=== PATIENT | female | born 1980 | race Caucasian/White ===

== ENCOUNTER → 2019-07-29 12:15 | Outpatient (BNVA) | payer SELFPAY | PROVIDERS: Visit Provider Nurse Practitioner Family | DX: R50.9 Fever, unspecified (principal); R19.7 Diarrhea, unspecified; F31.9 Bipolar disorder, unspecified | CPT/HCPCS: 87400; 87635 ==

== ENCOUNTER → 2019-10-13 14:09 | Outpatient (BNVA) | payer MEDICAID, SELFPAY | PROVIDERS: Visit Provider Nurse Practitioner Women's Health | DX: Z30.432 Encounter for removal of intrauterine contraceptive device (principal); Z30.9 Encounter for contraceptive management, unspecified; Z30.011 Encounter for initial prescription of contraceptive pills; Z12.4 Encounter for screening for malignant neoplasm of cervix | CPT/HCPCS: 88175 ==

== ENCOUNTER → 2020-03-07 10:45 | Outpatient (BNVA) | payer MEDICAID, SELFPAY | PROVIDERS: Visit Provider Obstetrics & Gynecology | DX: Z32.00 Encounter for pregnancy test, result unknown (principal) | CPT/HCPCS: 81025 ==

== ENCOUNTER → 2020-03-10 10:51 | Outpatient (BNVA) | payer MEDICAID, SELFPAY | PROVIDERS: PCP Nurse Practitioner Family; Visit Provider Nurse Practitioner Women's Health | DX: O99.211 Obesity complicating pregnancy, first trimester (principal); R30.0 Dysuria; F31.9 Bipolar disorder, unspecified; O09.521 Supervision of elderly multigravida, first trimester; O34.219 Maternal care for unspecified type scar from previous cesarean delivery; E03.9 Hypothyroidism, unspecified; O36.80X0 Pregnancy with inconclusive fetal viability, not applicable or unspecified; F34.9 Persistent mood [affective] disorder, unspecified; O09.899 Supervision of other high risk pregnancies, unspecified trimester | CPT/HCPCS: 84315; 87077; 87086; 87184 ==

== ENCOUNTER → 2020-03-22 09:05 | Outpatient (BNVA) | payer MEDICAID, SELFPAY | PROVIDERS: PCP Nurse Practitioner Family; Visit Provider Obstetrics & Gynecology | DX: O09.899 Supervision of other high risk pregnancies, unspecified trimester (principal); O09.521 Supervision of elderly multigravida, first trimester; E03.9 Hypothyroidism, unspecified; O99.211 Obesity complicating pregnancy, first trimester; F34.9 Persistent mood [affective] disorder, unspecified | CPT/HCPCS: 80053; 80307; 82950; 83036; 84315; 84443; 85027; 86592; 86762; 86803; 86850; 86900; 87340; 87806 ==

== ENCOUNTER → 2020-03-30 09:50 | Outpatient (BNVA) | payer MEDICAID, SELFPAY | PROVIDERS: PCP Nurse Practitioner Family; Visit Provider Obstetrics & Gynecology | DX: O09.899 Supervision of other high risk pregnancies, unspecified trimester (principal) | CPT/HCPCS: 82951; 82952 ==

== ENCOUNTER → 2020-04-03 11:07 | Outpatient (BNVA) | payer MEDICAID, SELFPAY | PROVIDERS: PCP Nurse Practitioner Family; Visit Provider Obstetrics & Gynecology | DX: O09.899 Supervision of other high risk pregnancies, unspecified trimester (principal); O23.40 Unspecified infection of urinary tract in pregnancy, unspecified trimester; Z30.2 Encounter for sterilization; Z86.32 Personal history of gestational diabetes; O09.299 Supervision of pregnancy with other poor reproductive or obstetric history, unspecified trimester; O34.219 Maternal care for unspecified type scar from previous cesarean delivery; O09.521 Supervision of elderly multigravida, first trimester; O99.211 Obesity complicating pregnancy, first trimester; E03.9 Hypothyroidism, unspecified; F31.9 Bipolar disorder, unspecified; Z3A.00 Weeks of gestation of pregnancy not specified | CPT/HCPCS: 84315; 87086; 87491; 87591 ==

== ENCOUNTER → 2020-05-03 13:30 | Outpatient (BNVA) | payer MEDICAID, SELFPAY | PROVIDERS: PCP Nurse Practitioner Family; Visit Provider Nurse Practitioner Women's Health | DX: O09.899 Supervision of other high risk pregnancies, unspecified trimester (principal); Z36.9 Encounter for antenatal screening, unspecified; O23.40 Unspecified infection of urinary tract in pregnancy, unspecified trimester; Z30.2 Encounter for sterilization; Z86.32 Personal history of gestational diabetes; O09.299 Supervision of pregnancy with other poor reproductive or obstetric history, unspecified trimester; O34.219 Maternal care for unspecified type scar from previous cesarean delivery; O09.521 Supervision of elderly multigravida, first trimester; O99.211 Obesity complicating pregnancy, first trimester; E03.9 Hypothyroidism, unspecified; F31.9 Bipolar disorder, unspecified | CPT/HCPCS: 82105; 84315 ==

== ENCOUNTER → 2020-06-06 09:52 | Outpatient (BNVA) | payer MEDICAID, SELFPAY | PROVIDERS: PCP Nurse Practitioner Family; Visit Provider Obstetrics & Gynecology | DX: O09.899 Supervision of other high risk pregnancies, unspecified trimester (principal); Z30.2 Encounter for sterilization; O09.299 Supervision of pregnancy with other poor reproductive or obstetric history, unspecified trimester; Z86.32 Personal history of gestational diabetes; O34.219 Maternal care for unspecified type scar from previous cesarean delivery; O09.521 Supervision of elderly multigravida, first trimester; O99.211 Obesity complicating pregnancy, first trimester; E03.9 Hypothyroidism, unspecified; F31.9 Bipolar disorder, unspecified; Z04.89 Encounter for examination and observation for other specified reasons | CPT/HCPCS: 84315; 84443 ==

== ENCOUNTER 2020-06-27 10:11 | Emergency (ER) | payer MEDICAID, SELFPAY ==
[2020-06-27] VITALS (11 sets, daily range): BP systolic 105–141; BP diastolic 69–110; PULSE 82–133; RESP 16–24; TEMP 36.7–36.8; O2SAT 96–100; BMI 43.5
--- NOTE | 2020-06-27 10:49 | ED_ITS ---
Documented by User: ALO Lei 06/27/20 15:17 HPI - URI/Sore Throat General: Chief Complaint: COVID symptoms Stated Complaint: TESTED FOR COVID,SHORTNESS OF BREATH,COVID Time Seen by Provider: 06/27/20 10:15 Source: patient Mode of arrival: ambulatory Limitations: no limitations History of Present Illness: HPI Narrative: Patient is a 40-year-old female at 25 weeks here for complaints of cough, congestion, and shortness of breath. Patient states symptoms of been present over the past 2 weeks. She has been seen twice previously for symptoms and placed on amoxicillin which she finished and then azithromycin (just finished yesterday) , albuterol inhaler, and intranasal steroids. Patient does not feel like she is improving. Patient has routine follow-up with Dr. Gibson regarding the . She has no abdominal pain or cramping. No vaginal bleeding. She has felt normal movement. Patient not been running fevers. No sick contacts. She is having some mild nasal congestion with discharge. Previous smoker but hasn't smoked in almost 20 years. MD elicited complaint: cough, nasal congestion and other (SOB) Onset (ago): week(s) (2 wks) Consistency: constant Severity: moderate Description of mucous: yellow and green Able to tolerate fluids by mouth: Yes Exacerbating factors: speaking Relieving factors: nothing Associated symptoms: Reports chest pain (L posterior; reports previous hx of pleurisy ) and nasal congestion; Deny abdominal pain, chills, diarrhea, ear or mastoid pain, fever(s), headache(s), nausea, sinus pain or vomiting Treatments prior to arrival: antibiotics and other (intranasal steroids, albuterol inhaler ) Review of Systems Const: Denies: fever(s), chills, body aches, fatigue or malaise Eyes: Denies: change in vision, blurry vision, photophobia, floaters or seeing flashes ENMT: Reports: nasal discharge and nasal congestion; Denies: throat pain, odynophagia, hoarseness, ear or mastoid pain, post nasal drip or sinus pain Card: Reports: chest pain (L posterior; reports previous hx of pleurisy ) and swelling of feet/ankles (secondary to ); Denies: palpitations, irregular heart rhythm, edema, lightheadedness, syncope or pre-syncope Resp: Reports: dyspnea, productive cough and chest congestion; Denies: wheezing, stridor or hemoptysis GI: Denies: abdominal pain, nausea, vomiting or diarrhea : Reports: other (currently 25 wks ); Denies: flank pain, dysuria or vaginal bleeding Musc: Denies: neck pain or back pain Skin/Breast: Denies: rash Neuro: Denies: headache(s), numbness in extremities, weakness in extremities or sensory changes PFSH ED PFSH: Medical History (Updated 06/27/20 @ 15:10 by ALO Lei) Bipolar 1 disorder, depressed Diagnosed in 2016 managed by Sandy Duval at [facility]. -Reports having ADHD as a kid and was on Ritalin. Then diagnosed with depression as a teenager and did take some antidepressants until being diagnosed with bipolar disorder in 2016. - Was on Lamictal prior to the however stopped and is currently just on Lexapro. She self discontinued this in the first trimester and does not want medication and was not doing well following up with therapy either Hypothyroid Diagnosed in 2012 and was taking levothyroxine in the past. Has not been on any medication since at least 2018 and has not had her thyroid levels checked. No pertinent past medical history Denies diabetes, asthma, hypertension, seizures, DVT/PE. PMD: Julia Galvez. Surgical History Hx of section X 3 1--2008; CPD in [place] 2--2009; Repeat [place] 3--2012; Repeat [place] Family History Grandfather Diabetes Maternal grandfather Father Hyperlipidemia Hypertension Stroke Heart disease Denies family history of Colon cancer Ovarian cancer Breast cancer Uterine cancer Physical Exam Const: COMMON NORMALS: no acute distress, patient oriented x3, no limitations and alert GENERAL APPEARANCE: cooperative NUTRITIONAL APPEARANCE: obese and other ( ) ORIENTATION/CONSCIOUSNESS: Yes awake, Yes oriented to person, Yes oriented to place and Yes oriented to time HENMT: COMMON NORMALS: normocephalic, atraumatic, hearing grossly normal bilaterally, external ears normal, EAC's normal, TM's normal bilaterally, Normal external nose present, Normal nasal mucous membranes and turbinates present, moist oral mucous membranes and oropharynx normal HEAD & SCALP: normal to inspection, normocephalic and atraumatic FACE & SINUS: normal facial exam NOSE: Normal external nose present and Normal nasal mucous membranes and turbinates present EXTERNAL EAR: Yes external ears normal EXTERNAL AUDITORY CANAL: EAC's normal TYMPANIC MEMBRANE: TM's normal bilaterally MOUTH: Normal oral and palatal mucosa present, lip normal and tongue normal T HROAT: posterior oropharynx normal, tonsils normal and uvula midline OTHER: whispers when she speaks-states she is not hoarse but when she talks it triggers her to cough Eye: GENERAL EYE: appearance normal, both eyes and all related structures Neck/C-Spine: COMMON NORMALS: no lymphadenopathy Chest: COMMONS NORMALS: normal inspection of the chest and normal palpation of entire chest wall Resp: COMMON NORMALS: normal respiratory effort and clear to auscultation bilaterally AUSCULTATION: clear to auscultation bilaterally Cardio: COMMON NORMALS: regular rhythm RATE: tachycardic (mild) RHYTHM: regular rhythm GI: COMMON NORMALS: Soft to palpation INSPECTION: Yes gravid abdomen AUSCULTATION: Yes normoactive bowel sounds PALPATION: Yes Soft to palpation : COMMON NORMALS: Yes no CVA tenderness BLADDER/KIDNEY EXAM: Yes no CVA tenderness Back/Pelvis: COMMON NORMALS: no CVA tenderness Neuro: COMMON NORMALS: patient oriented x3 SENSORIUM/ORIENTATION: Yes alert, Yes oriented to person, Yes oriented to place and Yes oriented to time Skin: COMMON NORMALS: no rashes or lesions noted GENERAL SKIN EXAM: no rashes or lesions noted Course Vital Signs: Vital signs: Vital Signs Temperature 98.2 F 06/27/20 15:41 Pulse Rate 82 06/27/20 15:41 Respiratory Rate 16 06/27/20 15:41 Blood Pressure 125/82 06/27/20 15:41 Pulse Oximetry 98 06/27/20 15:41 MDM - URI/Sore Throat MDM Narrative: Medical decision making narrative: Patient clinically appears well. She was initially very mildly tachycardic upon arrival however this quickly resolved. She is satting at 98-100% on room air. Patient was ambulated around the ED and sats stayed at 98%. She did become tachycardic however. She has no white count. Her rapid COVID is negative. Remainder of her chemistry panel is normal. Very mild elevation to her CRP at 11.1. UA looks non- concerning. Spoke to Dr. Moses and decision was made to add BNP and D-dimer. BNP is normal. D-dimer very mildly elevated most likely secondary to her status. CXR showing possible chronic vs early pneumonia bibasilar infiltrates. Discussed with Dr. Moses and we feel patient is stable for DC. I don't see any indication or qualifications for an admit at this time. He recommends placing her on Augmentin. Recommend follow up with PCP and Dr. Gibson as scheduled/needed. Strict return to ED precautions given. Lab Data: Attestation: I reviewed the patient's lab results. Labs: Lab Results 06/27/20 06/27/20 06/27/20 Range/Units 11:35 11:39 11:39 WBC 9.0 (4.0-10.0) 10^3/ uL RBC 4.36 (4.1-5.3) 10^6/u L Hgb 12.1 (11.5-15.3) g/dL Hct 37.6 (37.0-47.0) % MCV 86.2 (81-99) fL MCH 27.8 L (28.0-34.0) pg MCHC 32.2 (30.0-36.0) g/dL RDW 13.9 (12.1-15.1) % Plt Count 218 (130-400) 10^3/c mm MPV 11.3 H (7.4-10.4) fL Neut % (Auto) 73.0 % Lymph % (Auto) 16.2 % [place] % (Auto) 7.6 % Eos % (Auto) 2.2 % Baso % (Auto) 0.3 % Neut # (Auto) 6.57 (1.8-7.7) 10^3/u L Lymph # (Auto) 1.5 (0.8-4.8) 10^3/u L [place] # (Auto) 0.7 (0.2-0.9) 10^3/u L Eos # (Auto) 0.2 (0.0-0.8) 10^3/u L Baso # (Auto) 0.0 (0.0-0.1) 10^3/u L Nucleated RBC % (a uto) 0 % Nucleated RBCs # 0.0 /100WBC D-Dimer (0-0.59) ug/mIFE U Sodium 138 (136-145) mmol/L Potassium 4.1 (3.5-5.1) mmol/L Chloride 104 (98-107) mmol/L Carbon Dioxide 23 (22-29) mmol/L Anion Gap 15.1 (5-19) BUN 5 L (6-20) mg/dL Creatinine 0.4 L (0.5-0.9) mg/dL GFR Calculation 178.6 H (90-130) mL/min Glucose 77 (65-115) mg/dL Calculated Osmolal ity 282 L (285-295) mOsm/k g Lactic Acid (0.5-2.2) mmol/L Calcium 8.7 (8.5-10.5) mg/dL Total Bilirubin 0.3 (0.15-1.2) mg/dL AST 9 (0-32) U/L ALT 7 (0-33) U/L Alkaline Phosphata se 59 (35-105) IU/L C-Reactive Protein 11.1 H (0.0-4.9) mg/L NT-Pro-B Natriuret Pep 88 (0-125) pg/mL Total Protein 6.2 L (6.6-8.7) g/dL Albumin 3.7 (3.5-5.2) g/dL Globulin 2.5 (1.3-4.6) g/dL Procalcitonin 0.05 (0-0.5) ng/mL Urine Color (Yellow) Urine Appearance (CLEAR) Urine pH (5-7) Ur Specific Gravit y (1.005-1.030) Urine Protein (Negative) Urine Glucose (UA) (Normal) Urine Ketones (Negative) Urine Blood (Negative) Urine Nitrate (Negative) Urine Bilirubin (Negative) Prot Sulfosalicyli c Acd (Negative) Urine Urobilinogen (Negative) mg/dL Ur Leukocyte Valorie ase (Negative) Urine RBC (0-2) /hpf Urine WBC (0-5) /hpf Ur Squamous Epith Cells (0-5) /hpf Amorphous Sediment Urine Bacteria (NONE) /hpf SARS-CoV-2 Ag (Rap id) (Negative) 06/27/20 06/27/20 06/27/20 Range/Units 11:39 11:45 11:54 WBC (4.0-10.0) 10^3/ uL RBC (4.1-5.3) 10^6/u L Hgb (11.5-15.3) g/dL Hct (37.0-47.0) % MCV (81-99) fL MCH (28.0-34.0) pg MCHC (30.0-36.0) g/dL RDW (12.1-15.1) % Plt Count (130-400) 10^3/c mm MPV (7.4-10.4) fL Neut % (Auto) % Lymph % (Auto) % [place] % (Auto) % Eos % (Auto) % Baso % (Auto) % Neut # (Auto) (1.8-7.7) 10^3/u L Lymph # (Auto) (0.8-4.8) 10^3/u L [place] # (Auto) (0.2-0.9) 10^3/u L Eos # (Auto) (0.0-0.8) 10^3/u L Baso # (Auto) (0.0-0.1) 10^3/u L Nucleated RBC % (a uto) % Nucleated RBCs # /100WBC D-Dimer (0-0.59) ug/mIFE U Sodium (136-145) mmol/L Potassium (3.5-5.1) mmol/L Chloride (98-107) mmol/L Carbon Dioxide (22-29) mmol/L Anion Gap (5-19) BUN (6-20) mg/dL Creatinine (0.5-0.9) mg/dL GFR Calculation (90-130) mL/min Glucose (65-115) mg/dL Calculated Osmolal ity (285-295) mOsm/k g Lactic Acid 0.8 (0.5-2.2) mmol/L Calcium (8.5-10.5) mg/dL Total Bilirubin (0.15-1.2) mg/dL AST (0-32) U/L ALT (0-33) U/L Alkaline Phosphata se (35-105) IU/L C-Reactive Protein (0.0-4.9) mg/L NT-Pro-B Natriuret Pep (0-125) pg/mL Total Protein (6.6-8.7) g/dL Albumin (3.5-5.2) g/dL Globulin (1.3-4.6) g/dL Procalcitonin (0-0.5) ng/mL Urine Color Yellow (Yellow) Urine Appearance Hazy A (CLEAR) Urine pH 8 H (5-7) Ur Specific Gravit y 1.010 (1.005-1.030) Urine Protein Neg (Negative) Urine Glucose (UA) Norm (Normal) Urine Ketones 1+ H (Negative) Urine Blood Neg (Negative) Urine Nitrate Negative (Negative) Urine Bilirubin Neg (Negative) Prot Sulfosalicyli c Acd Negative (Negative) Urine Urobilinogen Norm (Negative) mg/dL Ur Leukocyte Valorie ase Negative (Negative) Urine RBC 0-4 H (0-2) /hpf Urine WBC None (0-5) /hpf Ur Squamous Epith Cells 0-4 H (0-5) /hpf Amorphous Sediment Not Reportable Urine Bacteria Trace (NONE) /hpf SARS-CoV-2 Ag (Rap id) Negative (Negative) 06/27/20 Range/Units 13:30 WBC (4.0-10.0) 10^3/ uL RBC (4.1-5.3) 10^6/u L Hgb (11.5-15.3) g/dL Hct (37.0-47.0) % MCV (81-99) fL MCH (28.0-34.0) pg MCHC (30.0-36.0) g/dL RDW (12.1-15.1) % Plt Count (130-400) 10^3/c mm MPV (7.4-10.4) fL Neut % (Auto) % Lymph % (Auto) % [place] % (Auto) % Eos % (Auto) % Baso % (Auto) % Neut # (Auto) (1.8-7.7) 10^3/u L Lymph # (Auto) (0.8-4.8) 10^3/u L [place] # (Auto) (0.2-0.9) 10^3/u L Eos # (Auto) (0.0-0.8) 10^3/u L Baso # (Auto) (0.0-0.1) 10^3/u L Nucleated RBC % (a uto) % Nucleated RBCs # /100WBC D-Dimer 0.78 H (0-0.59) ug/mIFE U Sodium (136-145) mmol/L Potassium (3.5-5.1) mmol/L Chloride (98-107) mmol/L Carbon Dioxide (22-29) mmol/L Anion Gap (5-19) BUN (6-20) mg/dL Creatinine (0.5-0.9) mg/dL GFR Calculation (90-130) mL/min Glucose (65-115) mg/dL Calculated Osmolal ity (285-295) mOsm/k g Lactic Acid (0.5-2.2) mmol/L Calcium (8.5-10.5) mg/dL Total Bilirubin (0.15-1.2) mg/dL AST (0-32) U/L ALT (0-33) U/L Alkaline Phosphata se (35-105) IU/L C-Reactive Protein (0.0-4.9) mg/L NT-Pro-B Natriuret Pep (0-125) pg/mL Total Protein (6.6-8.7) g/dL Albumin (3.5-5.2) g/dL Globulin (1.3-4.6) g/dL Procalcitonin (0-0.5) ng/mL Urine Color (Yellow) Urine Appearance (CLEAR) Urine pH (5-7) Ur Specific Gravit y (1.005-1.030) Urine Protein (Negative) Urine Glucose (UA) (Normal) Urine Ketones (Negative) Urine Blood (Negative) Urine Nitrate (Negative) Urine Bilirubin (Negative) Prot Sulfosalicyli c Acd (Negative) Urine Urobilinogen (Negative) mg/dL Ur Leukocyte Valorie ase (Negative) Urine RBC (0-2) /hpf Urine WBC (0-5) /hpf Ur Squamous Epith Cells (0-5) /hpf Amorphous Sediment Urine Bacteria (NONE) /hpf SARS-CoV-2 Ag (Rap id) (Negative) Imaging Data^: CXR: Radiologist's impression: [address] [address] XRay Report Signed Patient: Vamsi,Betty C Unit #: [id number] : 1980 Age/Sex: 40 / F ADM Date: 06/27/20 Loc: ER Room/Bed: Attending Dr: Ordering Provider/Ordering MD: Ema Suarez Date of Service: 06/27/20 Procedure(s): XR chest 1V portable [id number] Accession Number(s): [id number] Report Number: [id number] WS: [id number] Exam: XR chest 1V portable [id number] Date/Time of Exam: 06/27/2020 10:56 AM Reason For Exam: SOB/cough/SHIELD-PT IS No priors. Mild infiltrates are noted in the bilateral basal areas. Normal cardiome diastinal structures and regional bony elements. The lungs are fully inflated. No pleural effusions. XR/XR chest 1V portable [id number] IMPRESSION: 1. Mild bibasal infiltrates. These changes may be chronic or could represent developing pneumonia. Dictated By: Hernandez Persaud DO Signed By: Hernandez Persaud DO Signed Date/Time: 06/27/20 1200 DD/ 1159 Discharge Plan Discharge Patient Disposition: Home Clinical Impression: Bronchitis Condition: Stable Prescriptions: New Augmentin 875-125 mg tablet 1 tab PO Q12H 7 Days Qty: 14 RF: 0 No Action prenat.vits,meliza,[id number] Tablet 1 tab PO DAILY RF: 0 azithromycin 250 mg tablet See Rx Instructions .ROUTE .COMPLEX RF: 0 hydrocodone-acetaminophen 5-325 mg tablet 1 tab PO QID PRN (Reason: Pain) RF: 0 Tylenol Extra Strength 500 mg Tablet 500 mg PO PRN RF: 0 ProAir HFA 90 mcg/actuation HFA aerosol inhaler 2 puff INHALATION QID PRN (Reason: Shortness Of Breath) RF: 0 fluticasone propionate 50 mcg/actuation spray,suspension 1 spray INTRANASAL DAILY RF: 0 Discharge Orders: Discharge ED (Routine); Ordered 06/27/20 Ordered By: Ema Suarez Referrals: Julia Galvez APN [Primary Care Provider] - Patient Instructions: Bronchitis (Acute) - Adult, Acute Bronchitis (ED) Activity Restrictions/Additional Instructions: As discussed please return to the emergency department for worsening or severe shortness of breath, worsening cough, fevers greater than 100.4, severe chest pain, or any other concerns you may have. Coding Level of Care Code ED [employer] for Chg Fwd Exam Comprehensive Documented by User: Kartik Moses [place], [facility] [place]/27/[place] 22:54 HPI - URI/Sore Throat General: Chief Complaint: COVID symptoms Stated Complaint: TESTED FOR COVID,SHORTNESS OF BREATH,COVID Time Seen by Provider: 06/27/20 10:15 [facility] PFSH: Medical History (Updated 06/27/20 @ 15:10 by ALO Lei) Bipolar 1 disorder, depressed Diagnosed in 2016 managed by Sandy Duval at [facility]. -Reports having ADHD as a kid and was on Ritalin. Then diagnosed with depression as a teenager and did take some antidepressants until being diagnosed with bipolar disorder in 2016. - Was on Lamictal prior to the however stopped and is currently just on Lexapro. She self discontinued this in the first trimester and does not want medication and was not doing well following up with therapy either Hypothyroid Diagnosed in 2012 and was taking levothyroxine in the past. Has not been on any medication since at least 2018 and has not had her thyroid levels checked. No pertinent past medical history Denies diabetes, asthma, hypertension, seizures, DVT/PE. PMD: Julia Galvez. Surgical History Hx of section X 3 1--2008; CPD in [place] 2--2009; Repeat [place] 3--2012; Repeat [place] Family History Grandfather Diabetes Maternal grandfather Father Hyperlipidemia Hypertension Stroke Heart disease Denies family history of Colon cancer Ovarian cancer Breast cancer Uterine cancer Course Vital Signs: Vital signs: Vital Signs Temperature 98.2 F 06/27/20 15:41 Pulse Rate 82 06/27/20 15:41 Respiratory Rate 16 06/27/20 15:41 Blood Pressure 125/82 06/27/20 15:41 Pulse Oximetry 98 06/27/20 15:41 MDM - URI/Sore Throat MDM Narrative: Medical decision making narrative: Kindly evaluate Ema Suarez's note for complete history and physical examination. I agree with her clinical findings. Essentially this is a 40-year-old female that is about 25 weeks and who has been treated for URI symptoms for about 2 weeks by her him specialist and primary care provider. She has had 2 rounds of antibiotics with no improvement. She is still significantly short of breath and so she was sent to the emergency department for evaluation. She had an extensive work-up in the emergency department and it was essentially unremarkable a walk test also showed she was not hypoxic on ambulation. No features consistent with congestive heart failure, no concerns for PE with only very mildly elevated D-dimer. X-ray done shows possible developing pneumonia. I believe the patient likely has bronchitis and may be is developing a secondary bacterial pneumonia or this is just a progression of the bronchitis. Since her work-up was unremarkable she is being discharged home with a prescription for Augmentin since the x-ray suggestive of pneumonia. She is to follow-up with her primary care provider and him specialist. Lab Data: Labs: Lab Results 06/27/20 06/27/20 06/27/20 Range/Units 11:35 11:39 11:39 WBC 9.0 (4.0-10.0) 10^3/ uL RBC 4.36 (4.1-5.3) 10^6/u L Hgb 12.1 (11.5-15.3) g/dL Hct 37.6 (37.0-47.0) % MCV 86.2 (81-99) fL MCH 27.8 L (28.0-34.0) pg MCHC 32.2 (30.0-36.0) g/dL RDW 13.9 (12.1-15.1) % Plt Count 218 (130-400) 10^3/c mm MPV 11.3 H (7.4-10.4) fL Neut % (Auto) 73.0 % Lymph % (Auto) 16.2 % [place] % (Auto) 7.6 % Eos % (Auto) 2.2 % Baso % (Auto) 0.3 % Neut # (Auto) 6.57 (1.8-7.7) 10^3/u L Lymph # (Auto) 1.5 (0.8-4.8) 10^3/u L [place] # (Auto) 0.7 (0.2-0.9) 10^3/u L Eos # (Auto) 0.2 (0.0-0.8) 10^3/u L Baso # (Auto) 0.0 (0.0-0.1) 10^3/u L Nucleated RBC % (a uto) 0 % Nucleated RBCs # 0.0 /100WBC D-Dimer (0-0.59) ug/mIFE U Sodium 138 (136-145) mmol/L Potassium 4.1 (3.5-5.1) mmol/L Chloride 104 (98-107) mmol/L Carbon Dioxide 23 (22-29) mmol/L Anion Gap 15.1 (5-19) BUN 5 L (6-20) mg/dL Creatinine 0.4 L (0.5-0.9) mg/dL GFR Calculation 178.6 H (90-130) mL/min Glucose 77 (65-115) mg/dL Calculated Osmolal ity 282 L (285-295) mOsm/k g Lactic Acid (0.5-2.2) mmol/L Calcium 8.7 (8.5-10.5) mg/dL Total Bilirubin 0.3 (0.15-1.2) mg/dL AST 9 (0-32) U/L ALT 7 (0-33) U/L Alkaline Phosphata se 59 (35-105) IU/L C-Reactive Protein 11.1 H (0.0-4.9) mg/L NT-Pro-B Natriuret Pep 88 (0-125) pg/mL Total Protein 6.2 L (6.6-8.7) g/dL Albumin 3.7 (3.5-5.2) g/dL Globulin 2.5 (1.3-4.6) g/dL Procalcitonin 0.05 (0-0.5) ng/mL Urine Color (Yellow) Urine Appearance (CLEAR) Urine pH (5-7) Ur Specific Gravit y (1.005-1.030) Urine Protein (Negative) Urine Glucose (UA) (Normal) Urine Ketones (Negative) Urine Blood (Negative) Urine Nitrate (Negative) Urine Bilirubin (Negative) Prot Sulfosalicyli c Acd (Negative) Urine Urobilinogen (Negative) mg/dL Ur Leukocyte Valorie ase (Negative) Urine RBC (0-2) /hpf Urine WBC (0-5) /hpf Ur Squamous Epith Cells (0-5) /hpf Amorphous Sediment Urine Bacteria (NONE) /hpf SARS-CoV-2 Ag (Rap id) (Negative) 06/27/20 06/27/20 06/27/20 Range/Units 11:39 11:45 11:54 WBC (4.0-10.0) 10^3/ uL RBC (4.1-5.3) 10^6/u L Hgb (11.5-15.3) g/dL Hct (37.0-47.0) % MCV (81-99) fL MCH (28.0-34.0) pg MCHC (30.0-36.0) g/dL RDW (12.1-15.1) % Plt Count (130-400) 10^3/c mm MPV (7.4-10.4) fL Neut % (Auto) % Lymph % (Auto) % [place] % (Auto) % Eos % (Auto) % Baso % (Auto) % Neut # (Auto) (1.8-7.7) 10^3/u L Lymph # (Auto) (0.8-4.8) 10^3/u L [place] # (Auto) (0.2-0.9) 10^3/u L Eos # (Auto) (0.0-0.8) 10^3/u L Baso # (Auto) (0.0-0.1) 10^3/u L Nucleated RBC % (a uto) % Nucleated RBCs # /100WBC D-Dimer (0-0.59) ug/mIFE U Sodium (136-145) mmol/L Potassium (3.5-5.1) mmol/L Chloride (98-107) mmol/L Carbon Dioxide (22-29) mmol/L Anion Gap (5-19) BUN (6-20) mg/dL Creatinine (0.5-0.9) mg/dL GFR Calculation (90-130) mL/min Glucose (65-115) mg/dL Calculated Osmolal ity (285-295) mOsm/k g Lactic Acid 0.8 (0.5-2.2) mmol/L Calcium (8.5-10.5) mg/dL Total Bilirubin (0.15-1.2) mg/dL AST (0-32) U/L ALT (0-33) U/L Alkaline Phosphata se (35-105) IU/L C-Reactive Protein (0.0-4.9) mg/L NT-Pro-B Natriuret Pep (0-125) pg/mL Total Protein (6.6-8.7) g/dL Albumin (3.5-5.2) g/dL Globulin (1.3-4.6) g/dL Procalcitonin (0-0.5) ng/mL Urine Color Yellow (Yellow) Urine Appearance Hazy A (CLEAR) Urine pH 8 H (5-7) Ur Specific Gravit y 1.010 (1.005-1.030) Urine Protein Neg (Negative) Urine Glucose (UA) Norm (Normal) Urine Ketones 1+ H (Negative) Urine Blood Neg (Negative) Urine Nitrate Negative (Negative) Urine Bilirubin Neg (Negative) Prot Sulfosalicyli c Acd Negative (Negative) Urine Urobilinogen Norm (Negative) mg/dL Ur Leukocyte Valorie ase Negative (Negative) Urine RBC 0-4 H (0-2) /hpf Urine WBC None (0-5) /hpf Ur Squamous Epith Cells 0-4 H (0-5) /hpf Amorphous Sediment Not Reportable Urine Bacteria Trace (NONE) /hpf SARS-CoV-2 Ag (Rap id) Negative (Negative) 06/27/20 Range/Units 13:30 WBC (4.0-10.0) 10^3/ uL RBC (4.1-5.3) 10^6/u L Hgb (11.5-15.3) g/dL Hct (37.0-47.0) % MCV (81-99) fL MCH (28.0-34.0) pg MCHC (30.0-36.0) g/dL RDW (12.1-15.1) % Plt Count (130-400) 10^3/c mm MPV (7.4-10.4) fL Neut % (Auto) % Lymph % (Auto) % [place] % (Auto) % Eos % (Auto) % Baso % (Auto) % Neut # (Auto) (1.8-7.7) 10^3/u L Lymph # (Auto) (0.8-4.8) 10^3/u L [place] # (Auto) (0.2-0.9) 10^3/u L Eos # (Auto) (0.0-0.8) 10^3/u L Baso # (Auto) (0.0-0.1) 10^3/u L Nucleated RBC % (a uto) % Nucleated RBCs # /100WBC D-Dimer 0.78 H (0-0.59) ug/mIFE U Sodium (136-145) mmol/L Potassium (3.5-5.1) mmol/L Chloride (98-107) mmol/L Carbon Dioxide (22-29) mmol/L Anion Gap (5-19) BUN (6-20) mg/dL Creatinine (0.5-0.9) mg/dL GFR Calculation (90-130) mL/min Glucose (65-115) mg/dL Calculated Osmolal ity (285-295) mOsm/k g Lactic Acid (0.5-2.2) mmol/L Calcium (8.5-10.5) mg/dL Total Bilirubin (0.15-1.2) mg/dL AST (0-32) U/L ALT (0-33) U/L Alkaline Phosphata se (35-105) IU/L C-Reactive Protein (0.0-4.9) mg/L NT-Pro-B Natriuret Pep (0-125) pg/mL Total Protein (6.6-8.7) g/dL Albumin (3.5-5.2) g/dL Globulin (1.3-4.6) g/dL Procalcitonin (0-0.5) ng/mL Urine Color (Yellow) Urine Appearance (CLEAR) Urine pH (5-7) Ur Specific Gravit y (1.005-1.030) Urine Protein (Negative) Urine Glucose (UA) (Normal) Urine Ketones (Negative) Urine Blood (Negative) Urine Nitrate (Negative) Urine Bilirubin (Negative) Prot Sulfosalicyli c Acd (Negative) Urine Urobilinogen (Negative) mg/dL Ur Leukocyte Valorie ase (Negative) Urine RBC (0-2) /hpf Urine WBC (0-5) /hpf Ur Squamous Epith Cells (0-5) /hpf Amorphous Sediment Urine Bacteria (NONE) /hpf SARS-CoV-2 Ag (Rap id) (Negative) Discharge Plan Discharge Patient Disposition: Home Clinical Impression: Bronchitis Condition: Stable Prescriptions: New Augmentin 875-125 mg tablet 1 tab PO Q12H 7 Days Qty: 14 RF: 0 No Action prenat.vits,meliza,[id number] Tablet 1 tab PO DAILY RF: 0 azithromycin 250 mg tablet See Rx Instructions .ROUTE .COMPLEX RF: 0 hydrocodone-acetaminophen 5-325 mg tablet 1 tab PO QID PRN (Reason: Pain) RF: 0 Tylenol Extra Strength 500 mg Tablet 500 mg PO PRN RF: 0 ProAir HFA 90 mcg/actuation HFA aerosol inhaler 2 puff INHALATION QID PRN (Reason: Shortness Of Breath) RF: 0 fluticasone propionate 50 mcg/actuation spray,suspension 1 spray INTRANASAL DAILY RF: 0 Discharge Orders: Discharge ED (Routine); Ordered 06/27/20 Ordered By: Ema Suarez Referrals: Julia Galvez APN [Primary Care Provider] - Patient Instructions: Bronchitis (Acute) - Adult, Acute Bronchitis (ED) Activity Restrictions/Additional Instructions: As discussed please return to the emergency department for worsening or severe shortness of breath, worsening cough, fevers greater than 100.4, severe chest pain, or any other concerns you may have. Coding Level of Care Code ED [employer] Workers for Jim Fwd Exam Comprehensive
--- NOTE | 2020-06-27 10:49 | XR_ITS ---
WS: [id number] Exam: XR chest 1V portable [id number] Date/Time of Exam: 06/27/2020 10:56 AM Reason For Exam: SOB/cough/SHIELD-PT IS No priors. Mild infiltrates are noted in the bilateral basal areas. Normal cardiomediastinal structures and jacqueline onal bony elements. The lungs are fully inflated. No pleural effusions. XR/XR chest 1V portable [id number] IMPRESSION: 1. Mild bibasal infiltrates. These changes may be chronic or could represent de veloping pneumonia.
[2020-06-27 11:54] LABS: Basophils % 0.3 %; Eosinophils # 0.2 10^3/uL (0.0-0.8); Eosinophils % 2.2 %; Hematocrit 37.6 % (37.0-47.0); Hemoglobin 12.1 g/dL (11.5-15.3); Lymphocytes # 1.5 10^3/uL (0.8-4.8); Lymphocytes % 16.2 %; Mean Corpuscular HGB Conc 32.2 g/dL (30.0-36.0); Mean Corpuscular Hemoglobin 27.8 pg (28.0-34.0); Mean Corpuscular Volume 86.2 fL (81-99); Mean Platelet Volume 11.3 fL (7.4-10.4); Monocytes # 0.7 10^3/uL (0.2-0.9); Monocytes % 7.6 %; Neutrophils # 6.57 10^3/uL (1.8-7.7); Nucleated Red Blood Cells % 0 %; Platelet Count 218 10^3/cmm (130-400); Red Blood Count 4.36 10^6/uL (4.1-5.3); Red Cell Distribution Width 13.9 % (12.1-15.1)
[2020-06-27 12:04] LABS: Add Urine Microscopic? YES; Bilirubin Urine Neg (Negative); Blood Urine Neg (Negative); Glucose Urine UA Norm (Normal); Ketones Urine 1+ (Negative); Leukocyte Esterase Urine Negative (Negative); Nitrate Urine Negative (Negative); Protein Urine Neg (Negative); Sulfosalicylic Acid Urine Negative (Negative); Urine Appearance Hazy (CLEAR); Urine Color Yellow (Yellow); Urobilinogen Urine Norm (Negative); pH Urine 8 (5-7)
[2020-06-27 12:10] LABS: Lactic Sepsis W/Reflex 0.8 mmol/L (0.5-2.2)
[2020-06-27 12:16] LABS: SARS Covid-2 Antigen Negative (Negative)
[2020-06-27 12:17] LABS: Add Urine Culture? No; Bacteria Urine TRACE /hpf; RBC Urine 0-4 /hpf (0-2); Squamous Epithelial Cell Urine 0-4 /hpf (0-5)
[2020-06-27 12:20] LABS: Procalcitonin 0.05 ng/mL (0-0.5)
[2020-06-27 12:32] LABS: Alanine Aminotransferase 7 U/L (0-33); Albumin Level 3.7 g/dL (3.5-5.2); Alkaline Phosphatase 59 IU/L (35-105); Anion Gap 15.1 (5-19); Aspartate Amino Transferase 9 U/L (0-32); Blood Urea Nitrogen 5 mg/dL (6-20); C Reactive Protein 11.1 mg/L (0.0-4.9); Calcium 8.7 mg/dL (8.5-10.5); Carbon Dioxide 23 mmol/L (22-29); Chloride 104 mmol/L (98-107); Globulin 2.5 g/dL (1.3-4.6); Glomerular Filtration Rate 178.6 mL/min (90-130); Glucose 77 mg/dL (65-115); Osmolality Calculated 282 mOsm/kg (285-295); Potassium 4.1 mmol/L (3.5-5.1); Sodium 138 mmol/L (136-145); Total Bilirubin 0.3 mg/dL (0.15-1.2); Total Protein 6.2 g/dL (6.6-8.7)
[2020-06-27 13:29] LABS: NT Pro B Type Natriuretic Pept 88 pg/mL (0-125)
[2020-06-27 13:48] LABS: D Dimer 0.78 ug/mIFEU (0-0.59)
== END 2020-06-27 15:44 | disposition home or self-care (01) ==
PROVIDERS: Emergency Provider Physician Assistant; PCP Nurse Practitioner Family
DX: O26.892 Other specified pregnancy related conditions, second trimester (principal); J40 Bronchitis, not specified as acute or chronic; Z3A.25 25 weeks gestation of pregnancy
CPT/HCPCS: 36415; 71045; 80053; 81001; 83605; 83880; 84145; 85025; 85378; 86140; 87426; 99283

== ENCOUNTER → 2020-07-25 08:49 | Outpatient (BNVA) | payer MEDICAID, SELFPAY | PROVIDERS: PCP Nurse Practitioner Family; Visit Provider Obstetrics & Gynecology | DX: O09.899 Supervision of other high risk pregnancies, unspecified trimester (principal); Z3A.00 Weeks of gestation of pregnancy not specified | CPT/HCPCS: 82950; 84315; 84443; 85025 ==

== ENCOUNTER → 2020-07-27 09:12 | Outpatient (BNVA) | payer MEDICAID, SELFPAY | PROVIDERS: PCP Nurse Practitioner Family; Visit Provider Obstetrics & Gynecology | DX: O09.899 Supervision of other high risk pregnancies, unspecified trimester (principal) | CPT/HCPCS: 82951; 82952 ==

== ENCOUNTER → 2020-09-20 10:17 | Outpatient (BNVA) | payer MEDICAID, SELFPAY | PROVIDERS: PCP Nurse Practitioner Family; Visit Provider Obstetrics & Gynecology | DX: O09.899 Supervision of other high risk pregnancies, unspecified trimester (principal); O24.419 Gestational diabetes mellitus in pregnancy, unspecified control; F31.9 Bipolar disorder, unspecified | CPT/HCPCS: 84315; 87081; 87635 ==

== ENCOUNTER 2020-09-25 05:02 | Inpatient (IN) | payer MEDICAID, SELFPAY ==
--- NOTE | 2020-09-19 10:26 | ANES.PREANE2 ---
Pre-Anesthetic Assessment Pre-Anesthetic Assessment: Height/Weight: Height 1.68 m Preop Diagnosis: IUP Proposed Procedure: Operation Date: 09/25/20 07:00 Proposed Procedures p Section Repeat With Tubal [id number] O34.219 Z30.2(Not Applicable) - José Luis Hernandez MD Familial anesthetic complications: 1st - difficulty spinal, multiple sticks 2nd time - no difficulties getting spinal in, but patient had extreme pain with incision and was able to wiggle her toes and she had to be put under general 3rd - dry heaving and puking the whole operation Social: Social History: No alcohol and No tobacco Exam: Pre-Anes Outpt Exam: alert, oriented x 3, clear to auscultation bilaterally and regular rate & rhythm Airway: Cervical ROM: WNL MP: 2 Dentition: Chipped Pulmonary: Pulmonary: Asthma Metabolic: Metabolic: DM (gestational) and Morbid obesity Anesthetic Plan: ASA status: 2 Anesthesia: Regional (specify below) (spinal) Risk of > 500 ml blood loss (7ml/kg in children): Yes, adequate IV access and fluids planned PFSH Anesthesia PFSH: Medical History Bipolar 1 disorder, depressed Diagnosed in 2015 managed by Sandy Duval at [facility]. -Reports having ADHD as a kid and was on Ritalin. Then diagnosed with depression as a teenager and did take some antidepressants until being diagnosed with bipolar disorder in 2015. - Was on Lamictal prior to the however stopped and is currently just on Lexapro. She self discontinued this in the first trimester and does not want medication and was not doing well following up with therapy either Hypothyroid Diagnosed in 2012 and was taking levothyroxine in the past. Has not been on any medication since at least 2017. Levels throughout the and 2020 were normal--reassess No pertinent past medical history Denies diabetes, asthma, hypertension, seizures, DVT/PE. PMD: Julia Galvez. Surgical History Hx of section X 3 1--2008; CPD in [place] 2--2009; Repeat [place] 3--2012; Repeat [place] Family History Grandfather Diabetes Maternal grandfather Father Hyperlipidemia Hypertension Stroke Heart disease Denies family history of Colon cancer Ovarian cancer Breast cancer Uterine cancer Data Anesthesia Cardiac Studies: No Data to Display
[2020-09-25] VITALS (27 sets, daily range): BP systolic 92–129; BP diastolic 49–76; PULSE 55–79; RESP 14–18; TEMP 35.9–37.1; O2SAT 92–100; BMI 42.4
[2020-09-25] MEDS: lactated ringers 1,000 ML 999 ML IV (05:45)
[2020-09-25 06:09] LABS: Basophils % 0.5 %; Eosinophils # 0.1 10^3/uL (0.0-0.8); Eosinophils % 1.4 %; Hematocrit 37.5 % (37.0-47.0); Hemoglobin 12.1 g/dL (11.5-15.3); Lymphocytes # 1.4 10^3/uL (0.8-4.8); Mean Corpuscular HGB Conc 32.3 g/dL (30.0-36.0); Mean Corpuscular Hemoglobin 27.4 pg (28.0-34.0); Mean Platelet Volume 12.7 fL (7.4-10.4); Monocytes # 0.8 10^3/uL (0.2-0.9); Monocytes % 8.8 %; Neutrophils # 6.46 10^3/uL (1.8-7.7); Neutrophils % 72.7 %; Nucleated Red Blood Cells % 0 %; Platelet Count 167 10^3/cmm (130-400); Red Blood Count 4.41 10^6/uL (4.1-5.3); Red Cell Distribution Width 14.7 % (12.1-15.1); White Blood Count 8.9 10^3/uL (4.0-10.0)
[2020-09-25 06:21] LABS: Glucose Point of Care 76 mg/dL (70-110)
[2020-09-25] MEDS: lactated ringers 1,000 ML 125 ML IV (06:41)
[2020-09-25] MEDS: citric acid-sodium citrate 30 mL UDC PO (06:53)
[2020-09-25] MEDS: metoclopramide 5 mg/mL SDV 2 mL 10 MG IVP (06:53)
[2020-09-25] MEDS: famotidine 20 mg/2 mL INJ IVP (06:54)
--- NOTE | 2020-09-25 06:59 | P.HPUD_ITS ---
Labor & Delivery H&P Update Date of Procedure: September 25, 2020 Date H&P Performed: 09/20/20 H&P update information: I have reviewed H&P completed within last 30 days, I have examined patient prior to procedure, No changes to prior documentation and H&P is in [facility] [place] on date indicated Admission Diagnosis: Preop diagnosis: IUP Primary indication for procedure: Previous delivery, GDM on insulin- poorly controlled, sterilization Planned procedure: Operation Date: 09/25/20 07:00 Proposed Procedures p Section Repeat With Tubal [id number] O34.219 Z30.2(Not Applicable) - José Luis Hernandez MD
--- NOTE | 2020-09-25 06:59 | PM.OPHPUD ---
Labor & Delivery H&P Update Date of Procedure: September 25, 2020 Date H&P Performed: 09/20/20 H&P update information: I have reviewed H&P completed within last 30 days, I have examined patient prior to procedure, No changes to prior documentation and [place] is [place] [facility] [place] date indicated Admission Diagnosis: Preop diagnosis: IUP Primary indication for procedure: Previous delivery, GDM on insulin-poorly controlled, sterilization Planned procedure: Operation Date: 09/25/20 07:00 Proposed Procedures p Section Repeat With Tubal [id number] O34.219 Z30.2(Not Applicable) - José Luis Hernandez MD
--- NOTE | 2020-09-25 08:56 | P.OP_ITS ---
Operative Report Date of procedure: September 25, 2020 OPERATIVE REPORT Date of surgery: 09/25/2020 Date of dictation: 09/25/2020 Preoperative diagnosis: 40-year-old 6 para 3-0-2-3 at 37 weeks and 2 days, poorly controlled gestational diabetic on insulin, previous delivery x3 desiring repeat , multiparity desiring permanent sterilization, obesity with a BMI of 42, polyhydramnios, advanced maternal age, bipolar disorder Postoperative diagnosis/findings: Same, baby boy DYlynne weighing 7 pounds 10 ounces Apgars of 7 and 9, normal tubes and ovaries bilaterally Procedure done: Repeat delivery via Pfannenstiel incision with total salpingectomy for sterilization Specimens removed/disposition of specimens: Placenta and cord which were discarded, right and left fallopian tube tissue sent to pathology labeled Surgeon: Dr. José Luis Gibson Cripple Cutter: Mayra Christy Anesthesia: Spinal anesthesia Estimated blood loss: 800 ml Intravenous fluids: 1400 mL of LR Urine output: 200 mL of clear urine via catheter Medications: As per anesthesia records Complications: None, patient was left recover in a stable condition INDICATION FOR PROCEDURE: Ms. Agustin is a 40-year-old 6 para 3-0-2-3 at 37 weeks and 2 days who presented to labor and delivery for scheduled repeat delivery and tubal ligation. course was significant for gestational diabetes which was not well controlled with insulin. She also had bipolar disorder and was on Lamictal prior to the but did not require medications until the last month and was on citalopram due to personal issues. She is advanced maternal age and had a low risk NIPT done. She had 3 previous deliveries and presented for scheduled surgery as she was not interested in trial of labor and desired permanent sterilization with total salpingectomy. She denies any new problems on the day of surgery and was GBS and Covid negative. PROCEDURE: After consent was obtained, patient was taken to the operating room where spinal anesthesia was placed without difficulty. She was placed supine on the table with a left lateral wedge. Paulson catheter and SCDs were placed. The abdomen was shaved and then prepped with duo prep. She was draped in a sterile fashion. After checking adequacy of anesthesia, a Pfannenstiel incision was made 2 cm above the pubic symphysis, over her old incision. The incision was carried down to the fascia using the Bovie. The fascia was nicked in the midline and the fascial incision was extended laterally using curved Mayos. The inferior aspect of the fascia was grasped with liv clamps and dissected off from the underlying rectus muscle. This was repeated again superiorly without any difficulty. The rectus muscle was . A demetrius was made in the peritoneum and the peritoneal incision was carried inferiorly taking care to proceed in layers so as to avoid the bladder. The peritoneal incision was extended superiorly as well. No adhesions were noted from the uterus to the anterior abdominal wall. The uterus was noted to be rotated to the left. There were dense adhesions of the bladder onto the anterior uterine wall consistent with history of previous C-sections. The bladder peritoneum was grasped with smooth forceps a bladder flap was created. the bladder blade was replaced thus protecting the bladder. A LOW TRANSVERSE UTERINE INCISION was made with a scalpel till the amniotic membrane was reached. The uterine incision was then extended laterally using bandage scissors. Amniotomy was done with Allis clamps and clear amniotic fluid was drained. The head of the baby was brought up to the level of the incision and delivered with fundal pressure. The remainder of body followed without any difficulty. The nose and mouth were suctioned, the umbilical cord was clamped and cut and the baby was handed off to the waiting cna caregiver, Dr. Calhoun. The placenta was delivered spontaneously with fundal massage. It was noted to be intact and was discarded. The interior of the uterus was cleaned of all clot and debris and was noted to be anival well. The uterus was exteriorized. The uterine incision was closed with 0 Vicryl in a running interlocking manner. Good hemostasis and reapproximation was obtained. Gqalmj-vl-kuyap sutures were placed in areas to obtain hemostasis. The abdomen was irrigated and the gutters were cleaned of clot and debris. Normal tubes and ovaries were noted bilaterally. Tubal ligation was performed at this time. The fallopian tube on the right side and in the left side were first identified grasped with [place] clamps. Using the [employer]oret device the mesosalpinx under the fallopian tube was identified clamped cauterized and then cut in a sequential fashion until the entire fallopian tube was removed. This was done first on the right side and then the left side without any difficulty. Areas of vasculature were doubly cauterized. The cornual end was cauterized as well. Good hemostasis and reapproximation of tissue was noted. The uterus was placed back into the abdomen and uterine incision was noted to be hemostatic. Surgicel was placed over the uterine incision. The peritoneum was closed with a 2-0 plain in a continuous stitch. There was a large blood vessel that was bleeding on the peritoneum which was doubly ligated and cauterized and good hemostasis was achieved. The rectus muscle was reapproximated with 2-0 plain suture in a mattress stitch. Good hemostasis was noted in the rectus muscle layer. The fascia was inspected for any defects and none were found and the fascia was closed with 0 loop PDS in continuous stitch. The subcutaneous plane was then irrigated and hemostasis was obtained using the Bovie. The subcutaneous plane was then reapproximated using 2-0 plain suture in a continuous manner. The skin was then closed with 4-0 Monocryl in a subcuticular fashion. Good reapproximation and hemostasis was noted. Steri-Strips were applied. The incision was dressed with Telfa ,ABD and paper tape. The fundus was noted to be firm at the end of the procedure and excess blood was expressed from the vagina. The patient was left to recover in a stable condition. This documentation was created by [employer] bus person dishwasher software (known for inherent bus person dishwasher error). Every effort was made to assure accuracy of bus person dishwasher. Any obvious errors or omissions should be clarified with the author of the document. Pre-op Diagnosis: IUP History History History 6 Term 4 Miscarriages/Ectopic 2 0 Living Children 4 Other History: 8, Para 4024, CD x 4, SAB X 1 VIP X 1 1--> 08/12/2008, male, (Darrell), 9lbs 14oz, emergency c- section d/t loss of FHT and umbilical cord wrapped around neck, delivered in [place]. No complications 2--> 08/23/2009, male, ([place]), 9lbs 9oz, planned, no complications with or delivery, delivered in [place] 3--> 2010-- VIP with medication 4--> 2011-- SAB, no D&C done 5--> 02/03/2013, male, (Danish), 9lbs, planned, no complications with delivery, GDM which was diet controlled with , delivered in [place] 6--> 09/25/2020, male([place]), 7 pounds 10 ounces, repeat at 37 weeks 4 poorly controlled gestational diabetic on insulin. [place] [facility] 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 -Reports having ADHD as a kid and was on Ritalin. Then diagnosed with depression as a teenager and did take some antidepressants until being diagnosed with bipolar disorder in 2015. - Was on Lamictal prior to the however stopped and is currently just on Lexapro. She self discontinued this in the first trimester and does not want medication and was not doing well following up with therapy either Hypothyroid Diagnosed in 2012 and was taking levothyroxine in the past. Has not been on any medication since at least 2017. Levels throughout the and 2020 were normal--reassess No pertinent past medical history Denies diabetes, asthma, hypertension, seizures, DVT/PE. PMD: Julia Galvez. Surgical History (Updated 09/25/20 @ 17:33 by José Luis Hernandez MD) Hx of section X 4 1--2008; CPD in [place] 2--2009; Repeat [place] 3--2012; Repeat [place] 4--09/25/2020---> scheduled repeat delivery by Dr. Gibson [place] [facility] Tubal ligation done at the same time. No intra-abdominal adhesions other than bladder adhesions onto the uterus Status post tubal ligation 09/25/2020---bilateral total salpingectomy for sterilization done at time of fourth by Dr. Gibson [place] [facility]. ---> Pathology pending Family History Grandfather Diabetes Maternal grandfather Father Hyperlipidemia Hypertension Stroke Heart disease Denies family history of Colon cancer Ovarian cancer Breast cancer Uterine cancer Supplemental [facility] Information - Tobacco Use: Started smoking at age 14 or 15 and smoked up to 1/3 pack per day until she quit in her 20s. Denies tobacco use since then. Drug Use: Reports using marijuana as early as the age of 15. Reports that after the age of 17 she did use methamphetamines, PCP and other drugs. Denies any drug use at all since the age of 22. Alcohol Use: Drank an occasional wine prior to . 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 At [employer] at home. Other Female Reproductive History Menstrual History Comment: Menarche at age 14 with a cycle length of 30 days and a bleeding duration of 7 days. Sexual History Sexual History Comment: Coitarche at age 16 , > 5 lifetime partners, has been with current partner and father of baby, Santi, since 2011. He works as a [employer] STD History Comment: Denies history of sexually transmitted diseases Contraception Contraception History Comment: Has used control pills and the IUD in the past for contraception. Did not like the pill as it made her very nauseous and she forgot to take them. Had the Mirena from 2012 until 2019 when it was removed and she got . --Total salpingectomy performed on 09/25/2020 at time of repeat for sterilization
[2020-09-25] MEDS: ondansetron 2 mg/ML SDV 2 mL 4 MG IVP ×2 (10:32→14:34)
[2020-09-25] MEDS: dextrose 5%-lactated ringers 1,000 ML 125 ML IV ×2 (10:37→18:26)
[2020-09-25] MEDS: HYDROcodone-acetaminophen 5-325 mg Tablet PO ×3 (10:59→20:11)
[2020-09-25] MEDS: ibuprofen 800 mg tablet PO ×3 (11:03→21:10)
--- NOTE | 2020-09-25 11:46 | PC.NURSE ---
Orders received from Dr. Gibson that she spoke to Dr. Bah from [facility] in relation to patient. Orders received to put in a psych consult order.
--- NOTE | 2020-09-25 16:31 | P.ANESUD_ITS ---
Pre-Anesthetic Update Pre-Anesthetic Assessment: Date of Surgery/Procedure: 09/25/20 Preop Anais gnosis: IUP Proposed Procedure: Operation Date: 09/25/20 07:00 Proposed Procedures p Section Repeat With Tubal [id number] O34.219 Z30.2(Not Applicable) - José Luis Hernandez MD Any changes to Pre-Anesthetic Assessment?: No Last Intake: Intake Last Liquid Date 09/24/20 Last Liquid Time 19:00 Last Solid Date 09/24/20 Last Solid Time 19:00 Labs Last 48hrs: Laboratory Results - last 48 hr 09/25/20 09/25/20 09/25/20 05:55 05:55 06:17 WBC 8.9 RBC 4.41 Hgb 12.1 Hct 37.5 MCV 85.0 MCH 27.4 L MCHC 32.3 RDW 14.7 Plt Count 167 MPV 12.7 H Neut % (Auto) 72.7 Lymph % (Auto) 16.0 [place] % (Auto) 8.8 Eos % (Auto) 1.4 Baso % (Auto) 0.5 Neut # (Auto) 6.46 Lymph # (Auto) 1.4 [place] # (Auto) 0.8 Eos # (Auto) 0.1 Baso # (Auto) 0.0 Nucleated RBC % (a uto) 0 Nucleated RBCs # 0.0 POC Glucose 76 Blood Type A Positive Rho(D) Type Positive / 4+ Vitals: Temperature 97.9 F 09/25/20 15:45 Temperature Source Oral 09/25/20 15:45 Pulse Rate 70 09/25/20 15:45 Pulse Rhythm 09/25/20 05:15 Pulse Strength 3+ Normal 09/25/20 05:15 Respiratory Rate 17 09/25/20 13:42 Respiratory Effort Non-Labored 09/25/20 05:15 Respiratory Depth Normal 09/25/20 05:15 Respiratory Patter n 09/25/20 05:15 Blood Pressure 112/62 09/25/20 15:45 Blood Pressure Ana n 78 09/25/20 15:45 Blood Pressure Pos ition Semi Fowlers 09/25/20 15:45 Pulse Oximetry 95 09/25/20 15:45 Oxygen Delivery Me thod 09/25/20 15:45 Exam: Pre-Anes Outpt Exam: alert, oriented x 3, clear to auscultation bilaterally and regular rate & rhythm Cardiac Studies: No Data to Display
--- NOTE | 2020-09-25 16:32 | ANE.PACU2 ---
Inpatient post-anesthesia follow up: Airway intact: Yes Vital signs: Temperature 97.9 F Pulse Rate 70 Respiratory Rate 17 Blood Pressure 112/62 Pulse Oximetry 95 Oxygen Delivery Me thod Room Air Oxygen Flow Rate Fraction of Inspir ed Oxygen Hydration adequate: Yes Nausea and vomiting: No Pain level: 2 Mental status: Baseline
[2020-09-25] MEDS: docusate sodium 100 mg Capsule PO (18:25)
[2020-09-25 21:59] LABS: Hematocrit 35.6 % (37.0-47.0); Hemoglobin 11.5 g/dL (11.5-15.3); Mean Corpuscular HGB Conc 32.3 g/dL (30.0-36.0); Mean Corpuscular Hemoglobin 27.6 pg (28.0-34.0); Mean Corpuscular Volume 85.4 fL (81-99); Mean Platelet Volume 11.7 fL (7.4-10.4); Platelet Count 148 10^3/cmm (130-400); Red Blood Count 4.17 10^6/uL (4.1-5.3); Red Cell Distribution Width 14.6 % (12.1-15.1); White Blood Count 9.2 10^3/uL (4.0-10.0)
[2020-09-25] MEDS: diphenhydrAMINE 50 mg/mL SDV 1mL 25 MG IVP (23:33)
[2020-09-26] MEDS: HYDROcodone-acetaminophen 5-325 mg Tablet PO ×5 (01:35→19:56)
[2020-09-26 03:40] VITALS: BP 98/62; PULSE 63; TEMP 36.8; O2SAT 95
[2020-09-26] MEDS: diphenhydrAMINE 50 mg/mL SDV 1mL 25 MG IVP (04:12)
[2020-09-26] MEDS: dextrose 5%-lactated ringers 1,000 ML 125 ML IV (05:14)
--- NOTE | 2020-09-26 06:45 | P.PN_ITS ---
Subjective Subjective: Interval history: SUBJECTIVE: Ms. Agustin is doing well today. States that pain is well controlled when she remembers to take her medication. She denies nausea, vomiting, fever, chills. Does report having some itching and had just received Benadryl. She denies fever, chills, shortness of breath and chest pain. She is having some difficulty breast-feeding as the baby is not latching well and she would like a consult. She denies suicidal/homicidal ideation and feels better with the baby is delivered and she does not have to do fingersticks. OBJECTIVE/PHYSICAL EXAM: Gen.: No acute distress Heart: S1-S2 heard, regular rate and rhythm Lungs: Clear to auscultation bilaterally Abdomen: Soft, fundus firm below umbilicus, tenderness around incision. Incision: Clean dry and intact-dressing intact Legs: No calf tenderness, trace bilateral pitting pedal edema. SCDs were in place ASSESSMENT AND PLAN: 40-year-old 6 para 4-0-2-4 status post repeat delivery and bilateral salpingectomy for sterilization, postoperative day #1 -Continue routine postoperative care-encourage ambulation, p.o. pain medication -Continue incentive spirometer use -SCDs for DVT prophylaxis -Vital signs stable, hemoglobin stable postoperatively -Catheter has been removed at 5 AM--follow-up voiding -Full liquid diet until patient passes flatus and will then advance to regular diet -Psychiatry consult with Dr. Bah ordered for bipolar disorder-awaiting cons ultation. -Desires circumcision---rest benefits alternatives discussed with patient and consents were signed. Vitals/I&O/Wt Last Vital Signs Temp 98.3 F 09/26/20 03:40 Pulse 63 09/26/20 03:40 Resp 18 09/25/20 18:00 BP 98/62 09/26/20 03:40 Pulse Ox 95 09/26/20 03:40 09/25/20 09/25/20 09/26/20 14:59 22:59 06:59 Intake Total 2914.583 / 2914.583 512.5 / 3427.083 1000 / 4427.083 Output Total 1600 / 1600 325 / 1925 375 / 2300 Balance 1314.583 / 1314.583 187.5 / 1502.083 625 / 2127.083 Weight last 48 hrs Weight 263 lb Physical Exam Urinary Catheter Management^: Paulson Latex: Cath Placed During This Visit: yes Urinary Catheter Date of Insertion: 09/25/20 Urinary Catheter Time of Insertion: 07:15 Data : 09/25/20 21:50 Attestations Medical Necessity Statement*: Patient needs to stay to recover from delivery Coding Level of Care Code Acute Sawdust Machine Operator for Jim Scott
[2020-09-26] MEDS: docusate sodium 100 mg Capsule PO ×2 (09:36→18:45)
[2020-09-26] MEDS: ibuprofen 800 mg tablet PO ×3 (09:36→21:13)
[2020-09-26] MEDS: prenatal vitamin Capsule 1 CAP PO (09:36)
[2020-09-26] MEDS: lanolin oint 7 gm 1 APPLIC TOPICAL (09:37)
[2020-09-26] MEDS: diphenhydrAMINE 25 mg Capsule PO ×3 (10:14→19:57)
[2020-09-26] MEDS: citalopram 20 mg Tablet 40 MG PO (10:14)
[2020-09-26 11:00] VITALS: BP 113/71; PULSE 76; RESP 16; TEMP 36.7; O2SAT 95
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
[2020-09-26] MEDS: simethicone 80 mg Chew PO ×2 (13:45→18:45)
[2020-09-26 17:01] VITALS: BP 112/70; PULSE 79; RESP 16; TEMP 36.5; O2SAT 95
--- NOTE | 2020-09-26 20:57 | PC.NURSE ---
maisha rn gave report at bedside at this time
[2020-09-26 22:30] VITALS: BP 118/77; PULSE 71; RESP 19; TEMP 36.8; O2SAT 96
--- NOTE | 2020-09-27 00:16 | PC.NURSE ---
pt rq snack at this time.
[2020-09-27 04:15] VITALS: BP 111/74; PULSE 74; RESP 18; TEMP 37; O2SAT 96
[2020-09-27] MEDS: HYDROcodone-acetaminophen 5-325 mg Tablet PO ×2 (05:10→18:07)
[2020-09-27] MEDS: diphenhydrAMINE 25 mg Capsule PO (05:10)
--- NOTE | 2020-09-27 06:48 | P.PN_ITS ---
Subjective Subjective: Interval history: SUBJECTIVE: Ms. Agustin is doing well today. States that pain is well controlled when she remembers to take her medication. She denies nausea, vomiting, fever, chills. She states that she has been burping but has not yet been able to pass gas and is a little frustrated with this. She has not really been ambulating very much. SCDs are in place. She denies suicidal/homicidal ideation . She reports talking to the psychiatrist and not having any questions. She is unsure if she wants to be able to go home today or stay another day. OBJECTIVE/PHYSICAL EXAM: Gen.: No acute distress Heart: S1-S2 heard, regular rate and rhythm Lungs: Clear to auscultation bilaterally Abdomen: Soft, fundus firm below umbilicus, tenderness around incision. Incision: Clean dry intact with Steri-Strips in place Legs: No calf tenderness, trace bilateral pitting pedal edema. SCDs were in place ASSESSMENT AND PLAN: 40-year-old 6 para 4-0-2-4 status post repeat delivery and bilateral salpingectomy for sterilization, postoperative day 2 -Continue routine postoperative care-encourage ambulation, p.o. pain medication -Continue incentive spirometer use -SCDs for DVT prophylaxis -Vital signs stable, hemoglobin stable postoperatively -Full liquid diet until patient passes flatus and will then advance to regular diet -Follow-up psychiatry consult note done by Dr. Bah. -Anticipate discharge home today or tomorrow depending on how she feels. Vitals/I&O/Wt Last Vital Signs Temp 98.2 F 09/27/20 22:45 Pulse 64 09/28/20 04:16 Resp 16 09/28/20 04:16 BP 100/65 09/28/20 04:16 Pulse Ox 94 09/28/20 04:16 09/27/20 09/27/20 09/28/20 14:59 22:59 06:59 Output Total 500 / 500 Balance -500 / -500 Physical Exam Urinary Catheter Management^: Paulson Latex: Cath Placed During This Visit: yes, but has since been removed by the nurse Reason for Continuing Indwelling Catheter: Decision to DC Catheter Urinary Catheter Date of Insertion: 09/25/20 Urinary Catheter Time of Insertion: 07:15 Date Urinary Catheter Removed: 09/26/20 Time Urinary Catheter Discontinued: 05:10 Data : 09/25/20 21:50 Attestations Medical Necessity Statement*: Patient needs to stay for another couple of days to recover from delivery Coding Level of Care Code Acute Machine Operator Hop Worker for Jim Scott
[2020-09-27] MEDS: docusate sodium 100 mg Capsule PO ×2 (08:45→17:23)
[2020-09-27] MEDS: ibuprofen 800 mg tablet PO ×3 (08:45→21:25)
[2020-09-27] MEDS: simethicone 80 mg Chew PO (08:45)
[2020-09-27] MEDS: prenatal vitamin Capsule 1 CAP PO (08:45)
[2020-09-27] MEDS: ferrous sulfate EC 325 mg Tablet PO ×2 (08:45→17:23)
[2020-09-27] MEDS: citalopram 20 mg Tablet 40 MG PO (09:06)
[2020-09-27 10:40] VITALS: BP 115/72; PULSE 71; RESP 16; TEMP 36.9
[2020-09-27 16:32] VITALS: BP 110/69; PULSE 74; RESP 16; TEMP 37.1
[2020-09-27 22:45] VITALS: BP 103/65; PULSE 72; RESP 16; TEMP 36.8; O2SAT 94
[2020-09-28 04:16] VITALS: BP 100/65; PULSE 64; RESP 16; O2SAT 94
[2020-09-28] MEDS: HYDROcodone-acetaminophen 5-325 mg Tablet PO ×2 (06:48→10:46)
--- NOTE | 2020-09-28 06:51 | PM.OBGYDC ---
Discharge Providers [facility]EW[facility] Date of Admission: 09/25/20 05:02 Date of Discharge: 09/28/20 Attending Provider at Admission: José Luis Hernandez MD Attending Provider at Discharge: José Luis Hernandez MD Primary Care Provider: Date of surgery: 09/25/2020 Preoperative diagnosis: 40-year-old 6 para 3-0-2-3 at 37 weeks and 2 days, poorly controlled gestational diabetic on insulin, previous delivery x3 desiring repeat , multiparity desiring permanent sterilization, obesity with a BMI of 42, polyhydramnios, advanced maternal age, bipolar disorder Postoperative diagnosis/findings: Same, baby boy DYlynne weighing 7 pounds 10 ounces Apgars of 7 and 9, normal tubes and ovaries bilaterally Procedure done: Repeat delivery via Pfannenstiel incision with total salpingectomy for sterilization Specimens removed/disposition of specimens: Placenta and cord which were discarded, right and left fallopian tube tissue sent to pathology labeled Surgeon: Dr. José Luis Gibson INDICATION FOR PROCEDURE: Ms. Agustin is a 40-year-old 6 para 3-0-2-3 at 37 weeks and 2 days who presented to labor and delivery for scheduled repeat delivery and tubal ligation. course was significant for gestational diabetes which was not well controlled with insulin. She also had bipolar disorder and was on Lamictal prior to the but did not require medications until the last month and was on citalopram due to personal issues. She is advanced maternal age and had a low risk NIPT done. She had 3 previous deliveries and presented for scheduled surgery as she was not interested in trial of labor and desired permanent sterilization with total salpingectomy. She denies any new problems on the day of surgery and was GBS and Covid negative. HOSPITAL COURSE: She underwent an uncomplicated Repeat delivery with bilateral salpingectomy on 09/25/2020. She did well on day 0 and was ambulating well, tolerating full liquid diet, voiding freely.. She was breast-feeding without difficulty and bonding well with her son. She desired him to be circumcised which was performed on day of life 1 without any difficulty after obtaining informed consent. Given history of bipolar disorder and poor compliance with outpatient therapy and follow-up with psychiatrist and inpatient psychiatry consult was ordered. She was seen by Dr. Bah on postoperative day #1 and he agreed with medication regimen of citalopram and did not recommend bipolar medication. He also recommended follow-up with therapy/psychiatry as outpatient. Pain was well-controlled with by mouth pain medication. She denied nausea, vomiting, fever, chills, shortness of breath, leg pain. She had moderate vaginal bleeding. On day # 1 she continued to do well with stable vital signs and stable hemoglobin at 11.5. She continued to do well on postoperative day #2 and day #3 and passed gas on. She was discharged home on day 3 in a stable condition. Warning signs for endometritis, wound infection, mastitis, DVT/PE were reviewed with her. Post delivery activity restrictions were also reviewed with her at all her questions were answered to her satisfaction. She has had sterilization for contraception. EXAM AT DISCHARGE: Gen.: No acute distress Heart: S1-S2 heard, regular rate and rhythm Lungs: Clear to auscultation bilaterally Abdomen: Soft, fundus firm below umbilicus, tenderness around incision. Incision: Clean dry and intact with Steri-Strips. Legs: No calf tenderness, +1 bilateral pitting pedal edema. CONDITION AT DISCHARGE: Stable This documentation was created by [employer] sales and retail management recruiter software (known for inherent sales and retail management recruiter error). Every effort was made to assure accuracy of sales and retail management recruiter. Any obvious errors or omissions should be clarified with the author of the document. Reason for Visit Reason for Visit: repeat c section with tubal Information Peripartum Data: Delivery Method: Physical Exam Urinary Catheter Management^: Paulson Latex: Cath Placed During This Visit: yes, but has since been removed by the nurse Reason for Continuing Indwelling Catheter: Decision to DC Catheter Urinary Catheter Date of Insertion: 09/25/20 Urinary Catheter Time of Insertion: 07:15 Date Urinary Catheter Removed: 09/26/20 Time Urinary Catheter Discontinued: 05:10 Discharge Data Data Completed and Pending: Completed Studies During Hospitalization Category Date Time Status Pathology: Surgic al [PTH] Routine Pth 09/25/20 08:59 Completed Vitals: Last Vital Signs Temp 98.2 F 09/27/20 22:45 Pulse 64 09/28/20 04:16 Resp 16 09/28/20 04:16 BP 100/65 09/28/20 04:16 Pulse Ox 94 09/28/20 04:16 Discharge Plan Discharge Patient Disposition: Home Condition: Stable Prescriptions: New ibuprofen 800 mg tablet 800 mg PO Q8H Qty: 30 RF: 0 hydrocodone-acetaminophen 5-325 mg tablet 1 tab PO Q6H Qty: 25 RF: 0 docusate sodium 100 mg Capsule 100 mg PO BID PRN (Reason: constipation) Qty: 30 RF: 0 Continued prenat.vits,meliza,[id number] Tablet 1 tab PO DAILY RF: 0 albuterol sulfate 0.63 mg/3 mL solution for nebulization 0.63 mg inhalation PRN PRN (Reason: Cough) RF: 0 citalopram 20 mg tablet 40 mg PO DAILY Qty: 21 RF: 0 (DME) blood-glucose meter Kit See Rx Instructions .Route Qty: 1 RF: 0 (DME) insulin syringe-needle U-100 [BD Insulin Syringe] 0.3 mL 29 gauge x 1/2 syringe See Rx Instructions .Route Qty: 100 RF: 0 (DME) Accutrend Glucose test strips Strip See Rx Instructions .Route Qty: 50 RF: 8 acetaminophen [Tylenol Extra Strength] 500 mg Tablet 500 mg PO PRN RF: 0 fluticasone propionate 50 mcg/actuation spray,suspension 1 spray INTRANASAL DAILY RF: 0 Discontinued Humulin N NPH U-100 Insulin 100 unit/mL suspension See Rx Instructions SUBCUT .COMPLEX RF: 0 Novolin R Regular U-100 Insuln 100 unit/mL solution 4 unit SUBCUT QAM Qty: 10 RF: 0 Discharge Orders: Discharge Order (Routine); Ordered 09/28/20 Ordered By: José Luis Hernandez Referrals: José Luis Hernandez MD [Physician] - 10/10/20 12:30 pm (2-week and 6-week postop 11.07.20 [id number]) Discharge Diet: Usual diet Discharge Activity: Limit activity as instructed Patient Instructions: Your Baby (GEN), How to Hold and Breastfeed Your Baby (GEN), and Nipple Soreness (GEN), and Your Diet (GEN), Pre-eclampsia and Eclampsia (DC), OB [facility], OB Discharge Report, OB Food/Drug Interaction Guide, OB Care at Home, Opioid Safety, Abnormal Bleeding, Depression Activity Restrictions/Additional Instructions: Pelvic rest for 6 weeks, no heavy lifting for 6 weeks 2-week and 6-week visit--fasting 2-hour GTT at 6-week visit Discharge Attestations PIT STEWARD Time Spent in Discharge Care*: greater than 30 min Coding Level of Care Code Acute Theology Professor for Jim Scott
[2020-09-28] MEDS: ibuprofen 800 mg tablet PO (08:58)
[2020-09-28] MEDS: docusate sodium 100 mg Capsule PO (08:59)
[2020-09-28] MEDS: prenatal vitamin Capsule 1 CAP PO (08:59)
[2020-09-28] MEDS: ferrous sulfate EC 325 mg Tablet PO (08:59)
[2020-09-28] MEDS: citalopram 20 mg Tablet 40 MG PO (09:18)
[2020-09-28] MEDS: diphenhydrAMINE 25 mg Capsule PO (10:47)
[2020-09-28 11:03] VITALS: BP 118/73; PULSE 68; RESP 18; TEMP 36.8
[2020-09-28 11:55] VITALS: BP 118/73; PULSE 68; RESP 18; TEMP 36.8
== END 2020-09-28 11:25 | disposition home or self-care (01) | DRG 785 ==
PROVIDERS: Admitting Provider Obstetrics & Gynecology; PCP Nurse Practitioner Family; Visit Provider Obstetrics & Gynecology
PROC: 10D00Z1 Extraction of Products of Conception, Low, Open Approach (ICD-10-PCS; CPT 59514; principal; 2020-09-25 07:00)
DX: O34.219 Maternal care for unspecified type scar from previous cesarean delivery (principal); Z3A.37 37 weeks gestation of pregnancy; Z37.0 Single live birth; O99.344 Other mental disorders complicating childbirth; F31.9 Bipolar disorder, unspecified; O99.284 Endocrine, nutritional and metabolic diseases complicating childbirth; E03.9 Hypothyroidism, unspecified; O99.214 Obesity complicating childbirth; O40.9XX0 Polyhydramnios, unspecified trimester, not applicable or unspecified; O24.424 Gestational diabetes mellitus in childbirth, insulin controlled; Z30.2 Encounter for sterilization
CPT/HCPCS: 36415; 36416; 51702; 58611; 59025; 59409; 82962; 85025; 85027; 86900; 88302; 96374; 96375; 98960; J0690; J1200; J2250; J2274; J2370; J2405; J2765; J3010; J3490; J7030